=== PATIENT | male | born 1985 | race Caucasian/White ===

== ENCOUNTER 2018-09-22 07:18 | Emergency (ER) | payer OTHER ==
[2018-09-22 07:37] VITALS: BP 128/68; PULSE 83; TEMP 98; BMI 26.9
--- NOTE | 2018-09-22 07:40 | PDOC ---
History of Present Illness - General Chief Complaint: Injury Stated Complaint: FALL/FOOT PAIN Time Seen by Provider: 09/22/18 07:35 History Source: Patient - History of Present Illness Occurred: reports: yesterday Severity: Yes: mild Lower Extremity Pain Location: right: foot Method of Injury: Yes: twisted Past History - Past Medical History Allergies/Adverse Reactions: Allergies Allergy/AdvReac Type Severity Reaction Status Date / Time No Known Allergies Allergy Verified 09/22/18 07:30 Home Medications: Ambulatory Orders NK [No Known Home Medication] 09/22/18 COPD: No - Suicide/Smoking/Psychosocial Hx Smoking History: Never smoked Review of Systems - Review of Systems Musculoskeletal: Yes: Joint Pain *Physical Exam - Vital Signs Last Vital Signs Temp Pulse Resp BP Pulse Ox 98 F 83 16 128/68 99 09/22/18 07:32 09/22/18 07:32 09/22/18 07:32 09/22/18 07:32 09/22/18 07:32 - Physical Exam General Appearance: Yes: Appropriately Dressed. No: Apparent Distress HEENT: positive: Normal Voice Neck: positive: Supple Respiratory/Chest: negative: Respiratory Distress Extremity: positive: Tender (to medial aspect of proximal R foot, no swelling). negative: Swelling Integumentary: positive: Dry, Warm Neurologic: positive: Fully Oriented, Alert, Normal Mood/Affect ED Treatment Course - RADIOLOGY Radiology Studies Ordered: Category Date Time Status ANKLE & FOOT-RIGHT* [RAD] Stat Radiology 09/22/18 07:40 Ordered Medical Decision Making - Medical Decision Making 09/22/18 08:15 33 yo M, no sig hx, here w/ R foot pain s/p twisting injury yesterday. States pain worse today, hurts to walk See exam M/l foot sprain XR w/ ttp to medial R foot XR foot/ankle neg for fx Dose of motrin here Aidan and crutches -dc w/ [facility] and ortho f/u as needed 09/22/18 08:59 *DC/Admit/Observation/Transfer Diagnosis at time of Disposition: Foot sprain Qualifiers: Encounter type: initial encounter Laterality: right Qualified Code(s): S93.601A - Unspecified sprain of right foot, initial encounter - Discharge Dispostion Disposition: HOME Condition at time of disposition: Good - Referrals Referrals: Thompson Polo MD [Staff Physician] - - Patient Instructions Printed Discharge Instructions: DI for Foot Sprain Additional Instructions: You sustained a foot sprain Your XR showed no fracture Take motrin for pain as needed, elevate and ice area for any swelling If pain persists after 2 weeks, please follow up with Dr Polo of ortho - Post Discharge Activity Forms/Work/School Notes: Back to Work
[2018-09-22] MEDS ORDERED: IBUPROFEN 400 MG TABLET (FP) PO ONE ×2 (08:36→08:38)
== END 2018-09-22 09:01 | disposition home or self-care (01) ==
LOC: JER 07:18
DX: S93.601A Unspecified sprain of right foot, initial encounter (principal); X50.1XXA Overexertion from prolonged static or awkward postures, initial encounter; Y93.89 Activity, other specified; Y92.89 Other specified places as the place of occurrence of the external cause; Y99.8 Other external cause status
CPT/HCPCS: 73610-TC-RT-FY; 73630-TC-RT-FY; 99282-25